=== PATIENT | male | born 1985 | race Caucasian/White ===

== ENCOUNTER 2019-10-29 19:19 | Emergency (ER) | payer OTHER ==
[~2019-10-29] VITALS: Ht 172.7 cm; Wt 80.0 kg
[2019-10-29 19:37] VITALS: BP 135/89
[2019-10-29] MEDS ORDERED: LIDOCAINE 1% Multi-Dose 20 ML VIAL. IJ ONE (19:45)
--- NOTE | 2019-10-29 20:10 | PHYS DOC ---
Past History Past Medical History: No Pertinent History, Other Past Surgical History: Other Additional Past Surgical Histo: septoplasty 2003 Alcohol Use: Occasionally Adult General Chief Complaint Chief Complaint: LACERATION/AVULSION HPI HPI Patient is a 33 year old male who presents with complaint of right index fingertip laceration. States this happened shortly prior to arrival. The patient states that he accidentally cut his index finger on a kitchen knife while cleaning it. States that it cut deeply down into the fingertip near the edge of the fingernail. Bleeding controlled prior to arrival. Denies any other injuries. States his tetanus immunization is likely not up-to-date as he does not remember if he has had an immunization within the last 5 years. Notes no difficulty with bending the right index finger is normal. Review of Systems Review of Systems Constitutional: Denies fever or chills [] Musculoskeletal: Denies back pain or joint pain [] Integument: Right index fingertip laceration[] Neurologic: Denies headache, focal weakness or sensory changes [] All other systems were reviewed and found to be within normal limits, except as documented in this note. Current Medications Current Medications Current Medications Medications (Trade) Dose Ordered Sig/Nikki Start Time Stop Time Status Last Admin Dose Admin Lidocaine HCl 20 ml 1X ONCE 10/29/19 19:45 10/29/19 19:49 DC Allergies Allergies Allergies Coded Allergies Type Severity Reaction Last Updated Verified No Known Drug Allergies 10/29/19 No Physical Exam Physical Exam Constitutional: Well developed, well nourished, no acute distress, non-toxic appearance. [] Skin: Warm, dry, 2.5 cm curvilinear laceration through the right ventral second fingertip extending to the medial border of nail bed, no visualized bone. [] Extremities: No tenderness, no cyanosis, no clubbing, ROM intact, no edema. [] Neurologic: Alert and oriented X 3, normal motor function, normal sensory function, no focal deficits noted. [] Current Patient Data Vital Signs Vital Signs Date Time Temp Pulse Resp B/P (MAP) Pulse Ox O2 Delivery O2 Flow Rate FiO2 10/29/19 19:37 98.0 118 16 135/89 (104) 96 Room Air Lab Results Not performed EKG EKG Not performed[] Radiology/Procedures Radiology/Procedures Indication: Right index fingertip laceration Procedure: The patient was placed in the appropriate position and anesthesia was achieved by injection of lidocaine 1% at the base of the right index finger using a digital block technique. The area was then irrigated with high-pressure saline and skin was prepped with Betadine. The laceration was closed using simple interrupted 4-0 nylon sutures. The wound area was then dressed with Telfa and an aluminum fingertip splint was placed for protection of fingertip. Total repaired wound length: 2.5 cm. Other Items: Total suture count: 4 The patient tolerated the procedure without difficulty. Complications: None.[] Course & Med Decision Making Course & Med Decision Making Pertinent Labs and Imaging studies reviewed. (See chart for details) Laceration was repaired as outlined in procedure note. Advised follow-up with primary doctor in 10 days for reevaluation and removal of sutures. Recommended basic wound care measures. Advised return to emergency department for any worsening symptoms. Patient was understanding and in agreement with treatment plan. Dragon Disclaimer Dragon Disclaimer This electronic medical record was generated, in whole or in part, using a voice recognition dictation system. Departure Departure: Impression: Primary Impression: Laceration Disposition: 01 HOME, SELF-CARE Condition: IMPROVED Referrals: PCP,UNKNOWN (PCP) Patient Instructions: Fingertip Laceration Additional Instructions: Follow-up with your primary doctor in 10 days for reevaluation and removal of stitches. Return to the emergency department for any worsening symptoms. OUSMANE LO MD Oct 29, 2019 20:10
[2019-10-29] MEDS ORDERED: DIPHTH,PERTUSS(ACELL),TET TOX 0.5 ML DISP.SYRIN. VAX IM ONE (20:30)
== END 2019-10-29 20:22 | disposition home or self-care (01) ==
LOC: ER 19:19
DX: S61.210A Laceration without foreign body of right index finger without damage to nail, initial encounter (principal); W26.0XXA Contact with knife, initial encounter; Y93.E8 Activity, other personal hygiene; Y92.89 Other specified places as the place of occurrence of the external cause; Y99.8 Other external cause status
CPT/HCPCS: 12001; 90471; 90715; 99283-25